=== PATIENT | male | born 1990 ===

== ENCOUNTER 2016-08-15 17:24 | Emergency (ER) | payer OTHER ==
[~2016-08-15] VITALS: Ht 167.6 cm; Wt 62.6 kg
[2016-08-15 17:25] VITALS: BP 150/94
[2016-08-15] MEDS ORDERED: LIDOCAINE 1% (XYLOCAINE) 20 ML VIAL INJ ONE (18:00)
[2016-08-15] MEDS ORDERED: BACITRACIN OINTMENT 0.9 GM PACKET TOP ONE (18:00)
[2016-08-15] MEDS ORDERED: TETANUS, DIPTHERIA, PERTUSSIS (ADACELL) VACCINE 0.5 ML VIAL IM ONE (18:00)
--- NOTE | 2016-08-15 18:33 | NUR ---
DR. FRANKS INJECTING LOCAL ANESTHETIC - PT GRIMACES BUT TOLERATES WELL.
== END 2016-08-15 19:05 | disposition home or self-care (01) ==
LOC: ED 17:30
DX: S61.214A Laceration without foreign body of right ring finger without damage to nail, initial encounter (principal); W45.8XXA Other foreign body or object entering through skin, initial encounter; Y99.0 Civilian activity done for income or pay
CPT/HCPCS: 12001; 90471; 90715; 99282